=== PATIENT | female | born 1965 | race African-American/Black ===

== ENCOUNTER 2018-05-10 17:48 | Emergency (ER) | payer OTHER | END 2018-05-10 22:28 | disposition home or self-care (01) | LOC: M ED 17:48 | DX: M25.572 Pain in left ankle and joints of left foot (principal); R60.0 Localized edema; Z79.899 Other long term (current) drug therapy; Z79.890 Hormone replacement therapy | CPT/HCPCS: 73610 ==

== ENCOUNTER → 2018-10-26 | Outpatient (CLI) | payer OTHER ==
[~2018-10-26] MED LIST: CETI1SYP16 PO; COVATAB PO; ESTR1TAB PO; estrogen
--- NOTE | 2018-10-26 09:21 | REPMRS ---
Patient History The patient states she has not had a clinical breast exam in over a year. Patient had first child at age 33. No known family history of cancer. Taking estrogen for 2 years. Digital Mammo Screening Bilat: October 26, 2018 - Exam #: [id number] Bilateral CC and MLO view(s) were taken. Technologist: Shivani Gamble, Technologist No prior studies available for comparison. FINDINGS: There are scattered fibroglandular densities. There is no evidence of dominant mass, architectural distortion, or clustered microcalcification typical of malignancy. Assessment: BI-RADS/ACR category 1 mammogram. Negative. Recommendation Routine screening mammogram of both breasts in 1 year (for women over age 40). This patient's Lifetime Breast Cancer RIsk is estimated at 12.8 %. This mammogram was interpreted with the aid of an FDA-approved computer-aided dectection system. Electronically Signed By: Anival Arellano MD 10/26/18 0921
== END ==
LOC: M RAD 07:32
PROVIDERS: ATTEND Internal Medicine
DX: Z12.31 Encounter for screening mammogram for malignant neoplasm of breast (principal); Z79.890 Hormone replacement therapy

== ENCOUNTER → 2019-09-20 | Outpatient (CLI) | payer OTHER ==
--- NOTE | 2019-09-20 10:42 | REP ---
Clinical: Cough. Technique: PA and lateral. Comparison: None. Findings: Subtle bibasilar atelectasis (left greater than right) suspected and correlation is recommended. No discrete focal consolidation. No effusion. No pneumothorax. Skeletal structures intact. Impression: Trace basilar atelectasis. Electronically Signed by Uvaldo Sanchez MD 09/20/2019 10:33 A
== END ==
LOC: M LRY 10:11
PROVIDERS: ATTEND Physician Assistant
DX: R05 Cough (principal)
CPT/HCPCS: 71046; G0463